=== PATIENT | male | born 1965 | race Two or more races ===

== ENCOUNTER 2023-03-30 20:44 | Emergency (ER) | payer BC ==
[~2023-03-30] VITALS: Ht 175.3 cm; Wt 86.6 kg
[2023-03-30] MEDS ORDERED: HYDROCODONE/APAP 5-325MG TABLET ONE (20:55)
[2023-03-30] MEDS ORDERED: HYDROCODONE/APAP 5-325MG TABLET PO ONE (21:00)
[2023-03-30] MEDS ORDERED: HYDR-3976 PO (22:24)
[2023-03-30] MEDS ORDERED: NAPR-1164 PO ×2 (22:25→22:29)
[2023-03-30 22:35] VITALS: BP 110/78
--- NOTE | 2023-03-30 22:35 | NUR ---
Patient discharged to home in stable condition. Written and verbal after care instructions given. Patient verbalizes understanding of instructions. Stressed follow up or return to ER for worsening s/s. Patient is a/ox4, NAD noted, patient ambulated with steady gait, accompanied by SO
== END 2023-03-30 22:36 | disposition home or self-care (01) ==
LOC: ER 20:44
DX: S43.101A Unspecified dislocation of right acromioclavicular joint, initial encounter (principal); E78.5 Hyperlipidemia, unspecified; Z79.899 Other long term (current) drug therapy; W18.39XA Other fall on same level, initial encounter; Y93.89 Activity, other specified; Y92.89 Other specified places as the place of occurrence of the external cause; Y99.8 Other external cause status
CPT/HCPCS: 71101; 73000; 73010; 73030; 73060; A4663